=== PATIENT | female | born 1940 | race Caucasian/White ===

== ENCOUNTER 2017-03-07 12:00 | Emergency (ER) | payer OTHER ==
[2017-03-07 12:08] VITALS: TEMP 98.6
--- NOTE | 2017-03-07 13:28 | EDPHY ---
H & P Time Seen by Provider: 03/07/17 12:55 HPI/ROS: CHIEF COMPLAINT: Lower back pain, abdominal pain HISTORY OF PRESENT ILLNESS: The patient is a 76-year-old female who presents emergency department was sudden onset and resolution of low back pain and abdominal pain. The patient states she was leaving her house to come into town. When she sat down in the car she developed sudden bilateral lower back pain. Her pain was severe. It radiated to her bilateral lower abdomen. She states it was "in my fallopian tubes." [place] she had a total of 2 episodes of vomiting. She came to the emergency department upon arrival her pain resolved. She has no abdominal back pain at this time. Patient denies recent dysuria or frequency. No hematuria. No fevers or chills. Patient's recent history is complicated by in intrauterine mass. Patient states she has been having vaginal discharge since September 2016. She has been treated with antibiotics as well as intrauterine pill. She went and saw a mobile product manager in [place]. Last week she had an ultrasound was diagnosed with an intrauterine mass. She is scheduled to have a D&C and further biopsy performed on Thursday in [place]. She states that since the evaluation of this week she has had no vaginal discharge. REVIEW OF SYSTEMS: My complete review of systems is negative except as mentioned in the HPI. Past Medical/Surgical History: Hypothyroidism, hypertension, uterine mass, Smoking Status: Current every day smoker Physical Exam: Vitals noted GENERAL: Well-appearing, in no acute distress, alert. HEENT: Eyes normal to inspection, normal pharynx, no signs of dehydration. NECK: No thyromegaly, no lymphadenopathy, supple. RESPIRATORY: Clear to auscultation bilaterally, no rales, rhonchi or wheezing. CVS: Regular rate and rhythm, no rubs, murmurs, or gallops. ABDOMEN: Soft, nontender, nondistended, no organomegaly. Benign BACK: Normal to inspection, no CVA tenderness. SKIN: Normal color, no rash, warm, dry. No pallor. EXTREMITIES: No pedal edema, no calf tenderness, no Homans sign or cords, no joint swelling. NEURO/PSYCH: [Alert and oriented x3, normal mood and affect, normal motor sensory exam. Constitutional: Initial Vital Signs Temperature (C) 37.0 C 03/07/17 12:05 Heart Rate 58 L 03/07/17 12:05 Respiratory Rate 20 03/07/17 12:05 Blood Pressure 169/117 H 03/07/17 12:05 O2 Sat (%) 99 03/07/17 12:05 O2 Delivery Mode Room Air Allergies/Adverse Reactions: No Known Allergies Allergy (Unverified 03/07/17 12:04) Home Medications: Medication Instructions Recorded ARMOUR THYROID 03/07/17 Amlodipine Besylate 03/07/17 Losartan Potassium 03/07/17 Medical Decision Making - Diagnostics Imaging Results: Imaging Impressions Abdomen/Pelvis Ultrasound 03/07/17 13:31 Impression: 1. Atherosclerotic calcified aorta without aneurysm. 2. Aortic dissection cannot be excluded on this study. Findings and recommendations discussed with Emergency Department physicianMyrna at 1458 hour, 03/07/2017. Final report concurs with initial preliminary interpretation. Pelvic/Renal Ultrasound 03/07/17 13:31 Impression: Suspect hydrocolpos with fluid-filled 9 x 7 x 6 cm structure in the pelvis and possible endocervical mass. Findings and recommendations discussed with Emergency Department physicianMyrna at 1536 hour, 03/07/2017. Final report concurs with initial preliminary interpretation. Chest X-Ray 03/07/17 13:51 Impression: 1. COPD. 2. Bronchitis/airways disease. 3. No definite pneumonia. 4. Old left humeral neck fracture. 5. Consider CT chest imaging if clinically indicated. Abdomen CT 03/07/17 14:25 Impression: 1. Probable hydrocolpos with 9 x 7 x 7 cm cystic lesion with air-fluid level in the lower pelvis likely representing air-fluid level within distended endometrial cavity possibly from obstruction from a cervical mass or stricture. Recommend gynecologic consult to exclude endometrial or uterine carcinoma resulting in hydrocolpos. 2. No evidence of peritoneal carcinomatosis, hepatic metastasis or significant adenopathy. 3. Chronic pancreatitis. 4. Atherosclerotic aorta without aneurysm Findings and recommendations discussed with Emergency Department physicianMyrna at 1533 hour, 03/07/2017. Final report concurs with initial preliminary interpretation. ED Course/Re-evaluation: In the emergency department I discussed possible etiologies with the patient. I answered all her questions. Patient's symptoms are resolved at this time. However based on the sudden onset of her symptoms and history of uterine mass I ordered an ultrasound. She did have an ultrasound of her aorta as well as her pelvis. Laboratory studies and urine were obtained. The IV the patient's laboratory [place] [address]. Hematocrit is low at 32. I compared this to a previous hematocrit from 2015. UA is pending. I added a chest x-ray due to the elevated white count. I discussed this with the patient. Ultrasound: Please refer to the dictated report by Dr. Ousmane Chaudhari. There is a noted mass. The aorta appears to be normal. Based on the ultrasound results a CT with IV contrast was ordered. I discussed this with Dr. Chaudhari. I discussed the plan with the patient. I answered all her questions. On recheck she was doing well. She had no abdominal pain. No lightheadedness or dizziness. CT of the abdomen pelvis: Please refer the dictated report by Dr. Chaudhari. Patient has noted pelvic mass. This appears to be in the endometrium. There is no active bleeding. Doctor's 20 does not feel this represents active bleeding or blood. I discussed the patient with Dr. Jazmyn Meza from gynecology. She felt the patient does not need to be admitted at this time. She does need close follow- up with gynecology. The patient has appointment with her mobile product manager on Thursday. Dr. Meza recommended I also gave the patient follow-up information with gynecologic oncologist. UA showed red cells with no white cells or bacteria. Although the patient has a elevated white count, I do not feel her symptoms are secondary to urinary tract infection. I discussed this with the patient. I answered all her questions. On recheck the patient was doing well. She had no abdominal pain. She is not lightheaded or dizzy. She was given warnings prior to leaving. She will follow up with her primary mobile product manager. She will also make contact with gynecologic oncologist. Differential Diagnosis: My differential includes but is not limited to uterine mass, uterine mass bleeding, ovarian cyst, ovarian torsion, aortic aneurysm, aortic dissection - Data Points Laboratory Results: Laboratory Results 03/07/17 13:00 03/07/17 13:00 03/07/17 03/07/17 03/07/17 15:50 14:33 13:00 WBC RBC Hgb Hct MCV MCH MCHC RDW Plt Count MPV Neut % (Auto) Lymph % (Auto) [place] % (Auto) Eos % (Auto) Baso % (Auto) Nucleat RBC Rel Count Absolute Neuts (auto) Absolute Lymphs (auto) Absolute Monos (auto) Absolute Eos (auto) Absolute Basos (auto) Absolute Nucleated RBC Immature Gran % Immature Gran # Platelet Estimate Polychromasia Hypochromasia Microcytic Cells Sodium 132 mEq/L L mEq/L (134-144) Potassium 4.5 mEq/L mEq/L (3.5-5.2) Chloride 97 mEq/L mEq/L (97-110) Carbon Dioxide 20 mEq/l L mEq/l (22-31) Anion Gap 15 mEq/L mEq/L (8-16) BUN 17 mg/dL mg/dL (7-23) Creatinine 1.0 mg/dL mg/dL (0.6-1.0) Estimated GFR 54 Glucose 130 mg/dL H mg/dL (70-100) Calcium 9.7 mg/dL mg/dL (8.5-10.4) Urine Color YELLOW Urine Appearance HAZY Urine pH 5.0 (5.0-7.5) Ur Specific [place] > 1.035 H (1.002-1.030) Urine Protein NEGATIVE (NEGATIVE) Urine Ketones TRACE H (NEGATIVE) Urine Blood NEGATIVE (NEGATIVE) Urine Nitrate NEGATIVE (NEGATIVE) Urine Bilirubin NEGATIVE (NEGATIVE) Urine Urobilinogen NEGATIVE EU EU (0.2-1.0) Ur Leukocyte Esterase TRACE H (NEGATIVE) Urine RBC 25-50 /hpf H /hpf (0-3) Urine WBC 1-3 /hpf /hpf (0-3) Ur Epithelial Cells TRACE /lpf /lpf (NONE-1+) Hyaline Casts 15-25 /lpf H /lpf (0-1) Urine Mucus TRACE /lpf /lpf (NONE-1+) Urine Glucose NEGATIVE (NEGATIVE) Patient ABO/Rh O POSITIVE Antibody Screen NEGATIVE 03/07/17 13:00 WBC 22.89 10^3/uL H 10^3/uL (3.80-9.50) RBC 3.90 10^6/uL L 10^6/uL (4.18-5.33) Hgb 10.1 g/dL L g/dL (12.6-16.3) Hct 32.4 % L % (38.0-47.0) MCV 83.1 fL fL (81.5-99.8) MCH 25.9 pg L pg (27.9-34.1) MCHC 31.2 g/dL L g/dL (32.4-36.7) RDW 21.1 % H % (11.5-15.2) Plt Count 382 10^3/uL 10^3/uL (150-400) MPV 9.5 fL fL (8.7-11.7) Neut % (Auto) 88.0 % H % (39.3-74.2) Lymph % (Auto) 3.7 % L % (15.0-45.0) [place] % (Auto) 7.1 % % (4.5-13.0) Eos % (Auto) 0.0 % L % (0.6-7.6) Baso % (Auto) 0.3 % % (0.3-1.7) Nucleat RBC Rel Count 0.0 % % (0.0-0.2) Absolute Neuts (auto) 20.15 10^3/uL H 10^3/uL (1.70-6.50) Absolute Lymphs (auto) 0.84 10^3/uL L 10^3/uL (1.00-3.00) Absolute Monos (auto) 1.62 10^3/uL H 10^3/uL (0.30-0.80) Absolute Eos (auto) 0.01 10^3/uL L 10^3/uL (0.03-0.40) Absolute Basos (auto) 0.06 10^3/uL 10^3/uL (0.02-0.10) Absolute Nucleated RBC 0.00 10^3/uL 10^3/uL (0-0.01) Immature Gran % 0.9 % % (0.0-1.1) Immature Gran # 0.21 10^3/uL H 10^3/uL (0.00-0.10) Platelet Estimate ADEQUATE (ADEQ) Polychromasia 1+ H Hypochromasia 2+ H Microcytic Cells 1+ H Sodium Potassium Chloride Carbon Dioxide Anion Gap BUN Creatinine Estimated GFR Glucose Calcium Urine Color Urine Appearance Urine pH Ur Specific [place] Urine Protein Urine Ketones Urine Blood Urine Nitrate Urine Bilirubin Urine Urobilinogen Ur Leukocyte Esterase Urine RBC Urine WBC Ur Epithelial Cells Hyaline Casts Urine Mucus Urine Glucose Patient ABO/Rh Antibody Screen Departure - Departure Disposition: Home, Routine, Self-Care Clinical Impression: Endometrial mass Abdominal pain Qualifiers: Abdominal location: lower abdomen, unspecified Qualified Code(s): R10.30 - Lower abdominal pain, unspecified Condition: Good Instructions: Abdominal Pain (ED) Additional Instructions: You need close follow-up with her mobile product manager. I spoke with the mobile product manager at [facility]. She recommends the follow-up with a gynecologic oncologist. Please contact Dr. Boby Penn at [facility]. You can see anyone in his practice. Return with increasing pain, nausea, vomiting or any other concerns. Referrals: Gurdeep Long [Primary Care Provider] - 3-4 days, if not improved
[2017-03-07 13:36] LABS: % IMMATURE GRANULYOCYTES 0.9 % (0.0-1.1); ABSOLUTE IMMATURE GRANULOCYTES 0.21 10^3/uL (0.00-0.10); ADD DIFF? NO; ADD MORPH? YES; ADD SCAN? NO; ATYPICAL LYMPHOCYTE FLAG 0 (0-99); FRAGMENT RBC FLAG 40 (0-99); HEMATOCRIT 32.4 % (38.0-47.0); HEMOGLOBIN 10.1 g/dL (12.6-16.3); LEFT SHIFT FLG 10 (0-99); LIPEMIA HEMOLYSIS FLAG 80 (0-99); MEAN CELL HEMOGLOBIN 25.9 pg (27.9-34.1); MEAN CELL HEMOGLOBIN CONCENTR. 31.2 g/dL (32.4-36.7); MEAN CELL VOLUME 83.1 fL (81.5-99.8); MEAN PLATELET VOLUME 9.5 fL (8.7-11.7); PLATELET CLUMPS FLAG 0 (0-99); PLATELET COUNT 382 10^3/uL (150-400)
[2017-03-07 13:39] LABS: RED CELL DISTRIBUTION WIDTH 21.1 % (11.5-15.2)
[2017-03-07 13:41] LABS: ANION GAP 15 mEq/L (8-16); CALCIUM 9.7 mg/dL (8.5-10.4); CARBON DIOXIDE 20 mEq/l (22-31); CHLORIDE 97 mEq/L (97-110); GLOMERULAR FILTRATION RATE 54; GLUCOSE 130 mg/dL (70-100); POTASSIUM 4.5 mEq/L (3.5-5.2); SODIUM 132 mEq/L (134-144)
[2017-03-07 14:05] LABS: HYPOCHROMIA 2+; MICROCYTES 1+; POLYCHROMASIA 1+
[2017-03-07 14:06] LABS: PLATELET ESTIMATE ADEQUATE (ADEQ)
[2017-03-07] MEDS ORDERED: IOPAMIDOL (ISOVUE-300) 100 ML BTL ONE (14:36)
[2017-03-07 15:56] LABS: COLOR YELLOW; LEUKOCYTE ESTERASE,URINE TRACE (NEGATIVE); NITRITE,URINE NEGATIVE (NEGATIVE)
[2017-03-07 16:02] LABS: HYALINE CASTS 15-25 /lpf (0-1); MUCUS TRACE /lpf (NONE-1+); RBC,URINE 25-50 /hpf (0-3)
[2017-03-07 17:11] VITALS: BP 132/72; PULSE 84; RESP 16; O2SAT 95
== END 2017-03-07 17:11 | disposition home or self-care (01) ==
DX: R10.30 Lower abdominal pain, unspecified (principal); N85.8 Other specified noninflammatory disorders of uterus; I10 Essential (primary) hypertension; F17.200 Nicotine dependence, unspecified, uncomplicated
CPT/HCPCS: 71020; 74177; 76775; 76856; 99285; Q9967